=== PATIENT | female | born 1970 | race Caucasian/White ===

== ENCOUNTER 2019-05-02 05:11 | Inpatient (IN) ==
[2019-04-25 10:17] LABS: BASO# 0.04 X1000 (0.0-0.2); BASO% 0.7 % (0.0-0.8); EOS# 0.36 X1000 (0.0-0.7); EOS% 6.6 % (0.0-10.0); HEMATOCRIT 37.6 % (37.0-47.0); HEMOGLOBIN 11.9 g/dL (12.0-16.0); LYMPH# 1.82 X1000 (1.2-3.4); LYMPH% 33.4 % (20.5-51.1); MCH 29.2 PG (27-31); MCHC 31.6 g/dL (33-37); MCV 92.4 FL (81-99); MONO% 5.5 % (1.7-9.3); MPV 10.2 FL (7.4-10.4); NEUT# 2.93 X1000 (1.4-6.5); NEUT% 53.8 % (42.2-75.2); PLT 259 X1000 (130-400); RBC 4.07 XMIL (4.2-5.4); RDW 12.5 % (11.5-14.5); WBC 5.45 X1000 (4.8-10.8)
--- NOTE | 2019-04-26 14:04 | HISTORY AND PHYSICAL ---
HISTORY OF PRESENT ILLNESS: The patient is a 49-year-old white female, G3, P2, A1 who was noted to have multiple uterine fibroids, dysmenorrhea and irregular menses. She has failed medical therapy. Recent endometrial biopsy was benign. She is up-to-date on Pap smear and mammogram both done in 2019 and were normal. The patient has expressed desire for permanent solution to her problem and will proceed with a ASHLEY/BSO. PAST MEDICAL HISTORY: Unremarkable. PAST SURGICAL HISTORY: She has had right shoulder surgery, anterior cervical fusion, as well as bone spurs removed from her back, x2, along with bilateral tubal ligation, left knee surgery as well as a D and C. PAST OB HISTORY: G3, P2, A1, x2, Ab x1. 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 REVIEW OF SYSTEMS: All systems reviewed and noncontributory. FAMILY HISTORY: Significant for leukemia. SOCIAL HISTORY: Tobacco use. She reports that she recently quit. Alcohol use none. MEDICATIONS: None. ALLERGIES: No known drug allergies. PHYSICAL EXAMINATION: VITAL SIGNS: Height 5 feet 2 inches, weight 200 pounds. Temperature 97.5 degrees, pulse is 67, respirations 18, blood pressure 112/73. HEENT: Pupils equal, round, reactive to light accommodation. Extraocular movements intact. Oropharynx clear. NECK: Supple. No thyromegaly. LUNGS: Clear to auscultation. HEART: Regular rate and rhythm. ABDOMEN: Bowel sounds positive. Palpable lower abdominal mass consistent with a fibroid uterus. Patient with pain on palpation of this area. EXTREMITIES: No clubbing, cyanosis, or edema noted. NEUROLOGIC: Cranial nerves 2-12 grossly intact. Motor 5/5. Ultrasound was performed that showed uterus was 14.8 x 8.5 cm including a 5.2 cm fibroid. ASSESSMENT/PLAN: A 49-year-old white female, G3, P2, A1 with uterine fibroids, dysmenorrhea and irregular menses, who has failed medical therapy. We will proceed with surgical intervention including hysterectomy with bilateral salpingo-oophorectomy. The patient counseled about the risks of surgery including bleeding, infection, bowel or bladder injury. The patient voices understanding. cc: Hugo Sanon III, MD
[2019-05-02] MEDS ORDERED: REGLAN ONE (06:02)
[2019-05-02] MEDS ORDERED: LR 1,000 ML ONE (06:02)
[2019-05-02] MEDS ORDERED: PEPCID ONE (06:02)
[2019-05-02] MEDS ORDERED: KEFZOL 2 GM/D5W 2 GM/50 ML IVPB ONE (06:02)
[2019-05-02] MEDS ORDERED: VERSED ONE (06:06)
[2019-05-02] MEDS ORDERED: DIPRIVAN 1% ONE (06:06)
[2019-05-02] MEDS ORDERED: FENTANYL ONE (06:06)
[2019-05-02] MEDS ORDERED: ZEMURON ONE ×3 (07:24→07:52)
[2019-05-02] MEDS ORDERED: DECADRON ONE (07:24)
[2019-05-02] MEDS ORDERED: SODIUM CHLORIDE 0.9% 10 ML ONE (07:24)
[2019-05-02] MEDS ORDERED: ZOFRAN ONE (07:24)
[2019-05-02] MEDS ORDERED: OFIRMEV 1000 MG/ISOTONIC SOLN 1,000 MG/100 ML BOTTLE ONE (07:24)
[2019-05-02] MEDS ORDERED: NEO-SYNEPHRINE ONE (07:24)
[2019-05-02] MEDS ORDERED: XYLOCAINE-MPF 2% ONE (07:24)
[2019-05-02 07:45] LABS: URINE SOURCE CATH
[2019-05-02 07:51] LABS: BILIRUBIN URINE NEGATIVE (NEGATIVE); BLOOD URINE NEGATIVE (NEGATIVE); COLOR STRAW; GLUCOSE URINE NEGATIVE (NEGATIVE); KETONE URINE NEGATIVE (NEGATIVE); LEUKOCYTES URINE NEGATIVE (NEGATIVE); NITRITE URINE NEGATIVE (NEGATIVE); PROTEIN URINE NEGATIVE (NEGATIVE); SP GRAVITY URINE 1.006; TURBIDITY URINE CLEAR (CLEAR); UROBILINOGEN URINE NORMAL (NORMAL)
[2019-05-02 07:52] LABS: UR EPITHELIAL CELLS <10 /HPF (<10); URINE BACTERIA NEGATIVE /HPF; URINE RBC <10 /HPF (<10); URINE WBC <10 /HPF (<10)
[2019-05-02] MEDS ORDERED: TORADOL ONE (07:52)
[2019-05-02] MEDS ORDERED: NEOSTIGMINE ONE (08:08)
[2019-05-02] MEDS ORDERED: ROBINUL ONE (08:08)
[2019-05-02] MEDS: PHENERGAN ONE ×2 (09:10→10:44)
[2019-05-02] MEDS ORDERED: AMBIEN PO PRN (09:18)
[2019-05-02] MEDS ORDERED: ESTRADERM 0.05 MG/24 HR PATCH TD ONE (09:18)
[2019-05-02] MEDS ORDERED: NORCO-5 PO PRN (09:18)
[2019-05-02] MEDS ORDERED: MORPHINE IM PRN (09:18)
[2019-05-02] MEDS ORDERED: ZOFRAN IV PRN ×2 (09:18→10:30)
[2019-05-02] MEDS ORDERED: PHENERGAN IM PRN (09:18)
[2019-05-02] MEDS ORDERED: LEVSIN-SL SL PRN (09:18)
[2019-05-02] MEDS: DILAUDID ONE ×4 (09:33→09:45)
[2019-05-02] MEDS: DILAUDID PCA VIAL ONE ×2 (10:15→12:49)
--- NOTE | 2019-05-02 10:16 | OPERATIVE NOTE ---
PROCEDURE DATE: 05/02/2019 PREOPERATIVE DIAGNOSES: 1. Uterine fibroids. 2. Dysmenorrhea. 3. Irregular menses. POSTOPERATIVE DIAGNOSES: 1. Uterine fibroids. 2. Dysmenorrhea. 3. Irregular menses. PROCEDURE PERFORMED: Abdominal supracervical hysterectomy and bilateral salpingo-oophorectomy. SURGEON: Hugo Sanon III, MD. PUBLICITY MANAGER: DO Elfego. ANESTHESIA: General, Dr. Blank. FINDINGS: Uterine fibroids and dense bladder adhesions to the cervix. Normal tubes and ovaries were seen. COMPLICATIONS: None. ESTIMATED BLOOD LOSS: 125 mL. SPECIMENS REMOVED: Uterus without cervix, bilateral tubes and ovaries. COUNTS: All counts were correct x3. INDICATIONS: The patient is a 49-year-old, white female, G 3, P 2, A 1, who was noted to have an enlarged uterus of 15 to 16 week size, uterus with fibroids, and with irregular bleeding as well. The patient had an endometrial biopsy and this evaluation showed that her endometrium was benign. The patient has expressed a desire to have a permanent solution to her problem and discussed removing ovaries as well at that time. She was agreeable. Patient counseled about the risks of surgery including bleeding, infection, bowel or bladder injury. DESCRIPTION OF PROCEDURE: The patient was taken to the OR. General anesthesia was employed. Patient was placed in the supine position. Prepped and draped in a sterile fashion with placement of a Ríos catheter. A midline vertical incision was made using a scalpel from the suprapubic to infraumbilical area. This was then taken down sharply to the fascial layer. Small blake was made in the rectus fascia. Fascial incision was then extended superiorly and inferiorly. The peritoneal layer was entered bluntly. The peritoneal incision was extended superiorly and inferiorly with care taken to avoid the bladder. The uterus was then removed from the pelvic cavity. Large fibroids were noted and distorted the normal anatomy, making difficult dissection. At this point in time, the round ligaments were isolated on the right and left sides with Francesca clamps. Then these were cut and then ligated with 0 Vicryl in a transfixing fashion. Bladder reflection was attempted at this time. Difficult due to the dense adhesions. The Francesca's free space was entered on both sides and then Antonia clamps were used to clamp across the utero-ovarian ligaments on both sides. These were then cut and then ligated using 0 Vicryl in a transfixing stitch. A clamp was placed across the uterine vessels and this was then cut with Chavez scissors and ligated using 0 Vicryl in a transfixing stitch in Mike fashion. This was accomplished on both sides with good hemostasis. Then both the tubes and ovaries on the right and left sides were removed with the LigaSure. This was accomplished without any bleeding. Dissection of the bladder reflection was very difficult due to dense adhesions. Attempted to bring this down as much as possible. Difficult to remove, particularly on the left side of the cervix, but we were able to amputate the uterus. Then, due to the dense adhesions, decided that leaving the cervix was probably safer at this juncture. This cervix was then closed using [id number] stitches of [address] across and good hemostasis was noted. Then the ligaments were inspected on the right and left sides, and good hemostasis was noted there as well. Irrigation was then employed. The lap sponges were removed from the upper abdomen. It was noted that all counts were correct at this time. The peritoneal layer was then closed using 2-0 chromic in a running fashion x1. The fascial layer was then closed using 0 Maxon in a running fashion x1. Subcutaneous layer was then irrigated as well. Electrocautery was used to obtain hemostasis and 2-0 chromic was used in the subcutaneous layer to reapproximate the tissue. Then the skin was reapproximated using latisha. Patient tolerated the procedure well and was taken to the recovery room in stable condition. All counts were correct x3. cc: MD DICKSON Lantigua III
[2019-05-02] MEDS ORDERED: LR 1,000 ML IV SCH (10:30)
[2019-05-02] MEDS ORDERED: NARCAN IV PRN (10:30)
[2019-05-02] MEDS ORDERED: DILAUDID PCA VIAL IV PRN (10:30)
[2019-05-02] MEDS ORDERED: ATARAX PO PRN (10:30)
[2019-05-02] MEDS: LR 1,000 ML IV SCH ×4 (11:15→23:10)
[2019-05-02] MEDS: MYLICON PO SCH ×3 (13:16→21:15)
[2019-05-02] MEDS: TORADOL IV SCH ×2 (17:59→23:10)
[2019-05-02] MEDS: COLACE PO SCH (21:15)
[2019-05-02] MEDS: PERIDEX MT SCH (21:15)
[2019-05-03] MEDS: TORADOL IV SCH ×2 (05:03→12:45)
[2019-05-03] MEDS: LR 1,000 ML IV SCH (05:03)
[2019-05-03 07:07] LABS: BASO# 0.01 X1000 (0.0-0.2); BASO% 0.1 % (0.0-0.8); EOS# 0.08 X1000 (0.0-0.7); EOS% 1.2 % (0.0-10.0); HEMATOCRIT 31.6 % (37.0-47.0); HEMOGLOBIN 9.9 g/dL (12.0-16.0); LYMPH# 1.49 X1000 (1.2-3.4); LYMPH% 22.3 % (20.5-51.1); MCH 29.5 PG (27-31); MCHC 31.3 g/dL (33-37); MONO# 0.59 X1000 (0.11-0.59); MONO% 8.8 % (1.7-9.3); MPV 10.4 FL (7.4-10.4); NEUT% 67.6 % (42.2-75.2); PLT 179 X1000 (130-400); RBC 3.36 XMIL (4.2-5.4); RDW 13.9 % (11.5-14.5); WBC 6.67 X1000 (4.8-10.8)
[2019-05-03] MEDS ORDERED: D/C PCA XX ONE (08:15)
[2019-05-03] MEDS: MYLICON PO SCH ×4 (08:33→23:12)
[2019-05-03] MEDS: PERIDEX MT SCH ×2 (08:33→23:12)
[2019-05-03] MEDS: COLACE PO SCH ×2 (08:33→23:12)
[2019-05-03] MEDS: NORCO-10 PO PRN ×3 (08:34→16:36)
--- NOTE | 2019-05-03 08:40 | PROVIDER PROGRESS NOTE ---
- Subjective Patient up in bed, seen private Marie Bess, no complaints S/P supracervical TAHBSO today postop #1 Will let staff know if she needs anything, and staff also advised to call if needed. Physical Exam Objective Vital Signs - 8 hr 05/03/19 00:54 05/03/19 04:10 05/03/19 07:38 Temperature 98.7 F 98.1 F 98.0 F Pulse Rate 65 64 57 L Respiratory Rate 20 16 16 Blood Pressure 98/58 131/66 114/55 O2 Sat by Pulse Oximetry 97 98 100 Active Medications Generic Name Dose Route Start Last Admin Trade Name Freq PRN Reason Stop Dose Admin Hydrocodone Bitart/Acetaminophen 1 each 05/02/19 09:18 05/03/19 08:34 [place]-10 PO 1 each Q4H PRN PRN Administration Pain (7-10 on Pain Scale) Hydrocodone Bitart/Acetaminophen 1 each 05/02/19 09:18 [place]-5 PO Q4H PRN PRN Pain (1-6 on Pain Scale) Chlorhexidine Gluconate 15 ml 05/02/19 21:00 05/03/19 08:33 Peridex MT 15 ml BID MARIA D Administration Docusate Sodium 100 mg 05/02/19 21:00 05/03/19 08:33 Colace PO 100 mg BID MARIA D Administration Hyoscyamine 0.25 mg 05/02/19 09:18 Levsin-Sl SL 4XDAY PRN PRN Bladder spasms Lactated Ringer's 1,000 mls @ 150 mls/hr 05/02/19 09:30 05/03/19 05:03 Lr IV 150 mls/hr .[id number] MARIA D Administration Ketorolac Tromethamine 30 mg 05/02/19 15:24 05/03/19 05:03 Toradol IV 05/03/19 12:01 30 mg Q6H MARIA D Administration Morphine Sulfate 10 mg 05/02/19 09:18 Morphine IM Q2-4H PRN PRN Pain (7-10 on Pain Scale) Ondansetron HCl 4 mg 05/02/19 09:18 05/02/19 14:52 Zofran IV 4 mg Q8H PRN PRN Administration Nausea Promethazine HCl 25 mg 05/02/19 09:18 Phenergan IM Q2-4H PRN PRN Pain (7-10 on Pain Scale) Simethicone 80 mg 05/02/19 13:00 05/03/19 08:33 Mylicon PO 80 mg PC + HS MARIA D Administration Zolpidem Tartrate 5 mg 05/02/19 09:18 Ambien PO HS PRN PRN Sleep Laboratory Results - last 24 hr 05/03/19 06:28 WBC 6.67 RBC 3.36 L Hgb 9.9 L Hct 31.6 L MCV 94.0 MCH 29.5 MCHC 31.3 L RDW Std Deviation 13.9 Plt Count 179 MPV 10.4 Immature Gran % (Auto) 0.0 Neut % (Auto) 67.6 Lymph % (Auto) 22.3 Crane % (Auto) 8.8 Eos % (Auto) 1.2 Baso % (Auto) 0.1 Immature Gran # (Auto) 0.00 Neut # (Auto) 4.50 Lymph # (Auto) 1.49 Crane # (Auto) 0.59 Eos # (Auto) 0.08 Baso # (Auto) 0.01
[2019-05-03] MEDS: PERCOCET-5 PO PRN ×2 (18:28→23:12)
[2019-05-04] MEDS: PERCOCET-5 PO PRN (04:07)
[2019-05-04 07:44] VITALS: BP 117/54
[2019-05-04] MEDS ORDERED: PERCOCET-5 PO PRN (07:45)
[2019-05-04] MEDS: PERIDEX MT SCH ×2 (07:56→08:02)
[2019-05-04] MEDS: MYLICON PO SCH ×2 (07:57→08:02)
[2019-05-04] MEDS: COLACE PO SCH ×2 (07:57→08:01)
--- NOTE | 2019-05-04 21:22 | DISCHARGE SUMMARY ---
ADMISSION DATE: 05/02/2019 DISCHARGE DATE: 05/04/2019 ADMISSION DIAGNOSIS: A 49-year-old white female, G3, P2, A1 with uterine fibroids, dysmenorrhea, and irregular menses, who has failed medical therapy. FINAL DIAGNOSIS: A 49-year-old white female, G3, P2, A1 with uterine fibroids, dysmenorrhea, and irregular menses, who has failed medical therapy with supracervical abdominal hysterectomy and bilateral salpingo-oophorectomy. PROCEDURES: 1. Supracervical abdominal hysterectomy. 2. Bilateral salpingo-oophorectomy. BRIEF HISTORY: The patient is a 49-year-old white female, G3, P2, A1, had multiple fibroids, dysmenorrhea and irregular menses. Endometrial biopsy was performed. This was benign. Recent Pap smear also was benign and, after failing medical therapy, had expressed a desire for a permanent solution and was scheduled for a [facility] BSO. PAST MEDICAL HISTORY: Unremarkable. PAST SURGICAL HISTORY: Right shoulder surgery, anterior cervical fusion, bone spurs removed from her back as well x2 and bilateral tubal ligation. She had left knee surgery and a dilatation and curettage as well. PAST OBSTETRIC HISTORY: G3, P2, A1, C-sections x2. Spontaneous AB x1. 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 REVIEW OF SYSTEMS: All systems reviewed and noncontributory. FAMILY HISTORY: Significant for leukemia. SOCIAL HISTORY: Tobacco use, quit recently. Alcohol use none. Medications none. ALLERGIES: No known drug allergies. PHYSICAL EXAMINATION: Vital Signs: Height 5 feet, 2 inches, weight 200 pounds. Temperature 97.5 degrees, pulse 67, respirations 18, blood pressure 112/73. HEENT: Pupils equal, round, and reactive to light and accommodation. Extraocular movements intact. Oropharynx clear. Neck: Supple, no thyromegaly. Lungs: Clear to auscultation. Heart: Regular rate and rhythm. Abdomen: Bowel sounds positive. Palpable lower abdominal mass, consistent with uterine fibroid. The patient with some pain on palpation in this area. Extremities: No clubbing, cyanosis, or edema noted. Neurologic: Cranial nerves 2-12 grossly intact. Motor 5/5. LABORATORY DATA: On laboratory, the patient had an ultrasound performed that showed the uterus was 14.8 x 8.5 cm, which included a 5.2 cm fibroid. ASSESSMENT AND PLAN: A 49-year-old white female, G3, P2, A1 with uterine fibroids, dysmenorrhea, and irregular menses, who has failed medical therapy in the past. The patient was scheduled for a total abdominal hysterectomy, bilateral salpingo-oophorectomy. The patient was counseled about the risks of surgery including bleeding, infection, bowel or bladder injury. HOSPITAL COURSE: The patient was taken to the operating room and unable to perform a ASHLEY due to extensive bladder adhesions to the cervix from 2 prior C-sections and instead proceeded with a supracervical hysterectomy along with a bilateral salpingo-oophorectomy. The patient did well after surgery, taken to her room after recovery and was advanced on her diet as tolerated. On postop day 1, the Ríos was removed and advanced her diet and became ambulatory. On postop day #2, was tolerating a regular diet, had stable vital signs, was afebrile and had also had a bowel movement. The patient expressed a desire to be discharged. I felt at this time that the patient could be discharged home. Pathology was also final and this showed uterine fibroids, adenomyosis, and normal tubes and ovaries. DISCHARGE PLANS: The patient will be discharged home. She will follow up in 1 week for staple removal. The patient was given instructions on pelvic rest and lifting precautions x6 weeks and also to call for any problems such as a temperature greater than 101, severe abdominal pain out of the ordinary. Prescriptions were given for Percocet 10, Colace 100 mg, iron sulfate 325 mg and estradiol 1 mg. The patient is to remove her Estraderm patch and, if she has symptoms, the prescription is there in case she has menopausal symptoms. cc: Hugo Sanon III, MD
== END 2019-05-04 09:40 | disposition home or self-care (01) | DRG 743 ==
LOC: SURHOLD 05:11 → 4N 08:46
PROVIDERS: ADMIT Obstetrics & Gynecology; ATTEND Obstetrics & Gynecology